=== PATIENT | male | born 1975 | race Hispanic/Latino ===

== ENCOUNTER 2023-04-27 17:30 | Emergency (ER) | payer OTHER, MEDICARE ==
[~2023-04-27 17:30] MED LIST: PALI3TAB PO; SUPER B COMPLEX PO
== END 2023-04-27 17:57 | disposition left against medical advice (07) ==
LOC: EDH 17:30
DX: Z00.8 Encounter for other general examination (principal); Z53.21 Procedure and treatment not carried out due to patient leaving prior to being seen by health care provider

== ENCOUNTER → 2024-01-04 | Outpatient (CLI) | payer MEDICARE | END | disposition home or self-care (01) | LOC: RAH 08:42 | PROVIDERS: ATTEND Internal Medicine Gastroenterology | DX: K44.9 Diaphragmatic hernia without obstruction or gangrene (principal); K21.9 Gastro-esophageal reflux disease without esophagitis; K31.89 Other diseases of stomach and duodenum | CPT/HCPCS: 74240 ==